=== PATIENT | female | born 1980 ===

== ENCOUNTER 2024-12-08 15:15 | Day surgery (SDC) | payer OTHER ==
[~2024-12-08 15:15] MED LIST: DIPHENHYDRAMINE HCL 50 MG/ML VIAL 1ML IV ONE; MIDAZOLAM HCL 2 MG/2 ML VIAL IV ONE; fentaNYL CITRATE 50 MCG/ML AMPUL IV PUSH ONE
== END 2024-12-08 15:43 | disposition home or self-care (01) ==
LOC: AMB-ENDOS 15:15
PROVIDERS: ATTEND Internal Medicine
DX: D12.5 Benign neoplasm of sigmoid colon (principal); K63.5 Polyp of colon; K57.30 Diverticulosis of large intestine without perforation or abscess without bleeding; K64.4 Residual hemorrhoidal skin tags; Z86.0101 Personal history of adenomatous and serrated colon polyps